=== PATIENT | female | born 1955 | race Caucasian/White ===

== ENCOUNTER 2022-02-07 21:29 | Emergency (ER) | payer MEDICARE, SELFPAY ==
--- NOTE | ~2022-02-07 | CT_ITS ---
EXAMINATION: CT CHEST WITHOUT CONTRAST CLINICAL INFORMATION: Fall COMPARISON: None TECHNIQUE: Multidetector volumetric CT imaging of the chest was done. Axial MIP volume rendering provided. Sagittal and coronal reformatted images were obtained. This CT examination was performed using dose optimization techniques as appropriate, variously including the following: *Automated exposure control *Adjustment of mA and/or kV according to patient size (this includes techniques or standardized protocols for targeted exams where dose is matched to indication/reason for exam; i.e. extremities or head) *Use of iterative reconstruction technique DLP: 363 mGy-cm FINDINGS: [employer]: Unremarkable LUNGS: The central airways are patent. Mosaic groundglass attenuation in the lungs. No dense consolidation. No pneumothorax. No suspicious pulmonary nodule. Calcified granuloma noted in the right middle lobe.. MEDIASTINUM: Enlarged heart. Coronary artery calcifications. No pericardial effusion. No mediastinal lymphadenopathy. PLEURA: There is no pleural effusion. No pleural mass or thickening. AXILLA: No lymphadenopathy. UPPER ABDOMEN: Calcification the right lobe of the liver. No acute abnormality visualized in the upper abdomen. OSSEOUS STRUCTURES: The clavicles are intact. The sternum is intact. Vertebral body height and alignment maintained. Prominent anterior bridging osteophytes. 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 No rib fractures are identified. CT/CT chest wo con IMPRESSION: No acute traumatic findings of the chest. No fractures are seen. Mosaic attenuation of the lungs is nonspecific. This could be associated with air trapping. Fleischner guidelines were followed.
[2022-02-07 21:55] VITALS: PULSE 79; RESP 18; TEMP 37.1; O2SAT 98; BMI 30.7
[2022-02-07 22:35] VITALS: BP 139/74
--- NOTE | 2022-02-07 22:51 | ED_ITS ---
HPI - Fall General Chief Complaint: Fall Stated Complaint: Fall Time Seen by Provider: 02/07/22 22:51 Source: patient Mode of arrival: ambulatory Limitations: language barrier History of Present Illness HPI Narrative: Patient apparently had a mechanical fall 6 days ago tripped on a dog on a rug landed on her left ribs since in complaining of pain while taking a deep breath no loss of consciousness and no head injury no abdominal pain no nausea no vomiting Related Data Previous Rx's Medication Instructions Recorded tramadol 50 mg tablet 50 mg PO Q6H PRN #20 tab 02/08/22 Allergies Allergy/AdvReac Type Severity Reaction Status Date / Time shrimp AdvReac Vomiting Verified 02/07/22 23:07 Review of Systems Review of Systems: Yes all other systems are reviewed and are negative [facility] Social History Social History Advance Directives: No Physical Exam Vital Signs: Vital Signs: Last Vital Signs Temp 98.7 F 02/07/22 21:55 Pulse 79 02/07/22 21:55 Resp 18 02/07/22 21:55 BP 139/74 02/07/22 22:35 Pulse Ox 98 02/07/22 21:55 BMI result Body Mass Index 30.7 Appearance: Alert. Oriented X3. No acute distress. Eyes: PERRLA, No Nystagmus ENT: Pharynx normal. Oral Mucosa moist Neck: Normal inspection. Neck supple. CVS: Normal heart rate and rhythm. Pulses normal. Respiratory: No respiratory distress. Equal air entry bilateral, no wheezing/rales/rhonchi tender to touch left ribs in midaxillary line Abdomen: Soft and nontender. Bowel sounds are present, no mass palpable, no CVA tenderness Skin: Skin warm and dry. Normal skin color. Normal skin turgor. Extremities: No lower extremity edema. No calf tenderness Neuro: Oriented X 3. MDM - Fall MDM Narrative Medical decision making narrative: Patient chest CT negative for any rib fracture /lung contusion will discharge patient home Lab Data Attestation: I reviewed the patient's lab results. Labs: Lab Results 02/08/22 Range/Units 00:21 COVID-19 ([facility]) Negative (Negative) COVID-19 Clin Com See Note Discharge Plan Discharge Clinical Impression: Contusion of rib on left side Patient Disposition: Home, Self-Care Instructions: Rib Contusion (ED) Additional Instructions: Apply ice Tramadol for pain Report to ER if worsening of pain/shortness of breath/abdominal pain/vomiting Prescriptions: New tramadol 50 mg tablet 50 mg PO Q6H PRN (Reason: pain) Qty: 20 0RF Interventions: ED Discharge Assessment Last Done: 02/08/22 01:16 Discharge Date/Time: 02/08/22 01:18
[2022-02-08] MEDS: traMADoL HCL 50 MG TABLET PO (00:17)
[2022-02-08 00:47] LABS: COVID-19 Test Negative (Negative)
== END 2022-02-08 01:18 | disposition home or self-care (01) ==
PROVIDERS: Emergency Provider Internal Medicine
DX: S20.212A Contusion of left front wall of thorax, initial encounter (principal); W01.0XXA Fall on same level from slipping, tripping and stumbling without subsequent striking against object, initial encounter; Y93.9 Activity, unspecified; Y92.039 Unspecified place in apartment as the place of occurrence of the external cause; Y99.9 Unspecified external cause status; Z20.822 Contact with and (suspected) exposure to COVID-19
CPT/HCPCS: 71250; 87635; 99284